=== PATIENT | female | born 1965 | race Caucasian/White ===

== ENCOUNTER 2018-07-09 12:26 | Outpatient (CLI) | payer OTHER ==
--- NOTE | 2018-07-09 15:37 | MRI ---
MRI RIGHT SHOULDER PERFORMED WITHOUT CONTRAST ENHANCEMENT: Date: 07/09/18 HISTORY: Right shoulder pain for months. FINDINGS: There are some moderate AC joint hypertrophic changes present. There is tendinosis of the supraspinatus tendon, particularly the anterior fibers, and there is a par tial undersurface tear involving the articular-sided fibers of the posterior portion of the supraspin atus tendon. This is a focal area where the articular-sided fibers are retracted by approximately 8.0 mm. This area is approximately 6-7 mm in AP dimension, and involves approximately 50% of the thickne ss of the tendon in this region. The infraspinatus appears intact. Subscapularis muscle and tendon are intact and the biceps tendon is normal in position within the bic ipital groove. There are not any definitive labral abnormalities other than some minimal undersurface changes involv ing the superior labrum, which could represent some mild degeneration. No significant rotator cuff muscle atrophy is seen. IMPRESSION: Focal undersurface tear of the posterior half of the supraspinatus tendon as discussed above. POS: LILLI
== END 2018-07-09 12:27 | disposition home or self-care (01) ==
LOC: SCSMRI 12:26
PROVIDERS: ATTEND Orthopaedic Surgery
DX: M75.101 Unspecified rotator cuff tear or rupture of right shoulder, not specified as traumatic (principal)

== ENCOUNTER 2018-10-13 13:19 | Outpatient (CLI) | payer OTHER ==
[2018-10-13 14:53] LABS: #Basophils 0.1 thou/uL (0.0-0.2); #Eosinphils 0.2 thou/uL (0.0-0.7); #Lymphocytes 3.6 thou/uL (1.20-3.40); #Monocytes 1.1 thou/uL (0.11-0.59); #Neutrophils 9.3 thou/uL (1.40-6.50); %Eosinophils 1.5 % (0.0-10.0); %Lymphocytes 24.9 % (21.0-51.0); %Neutrophils 64.6 % (42.0-75.0); Hemoglobin 14.5 g/dL (12.0-16.0); Mean Corpuscular HGB CONC 33.9 g/dL (32.0-36.0); Mean Corpuscular Hemoglobin 30.5 pg (27.0-31.0); Mean Platelet Volume 7.3 fL (7.4-10.4); Platelet Count 430 thou/uL (130-400); Red Blood Cell (RBC) Count 4.75 mill/uL (4.20-5.40); White Blood Cell (WBC) Count 14.3 thou/uL (4.8-10.8)
[2018-10-13 14:55] LABS: Bilirubin Negative (Negative); Blood, Urine Small (Negative); Clarity CLEAR (Clear); Glucose, Urine (Dipstick) Negative (Negative); Leukocyte Negative (Negative); Nitrite Negative (Negative); Protein, Urine (Dipstick) Negative (Neg-Trace); Specific Gravity, Urine 1.013 (1.002-1.036); Urobilinogen 0.2 mg/dL (0.2-1.0)
[2018-10-13 14:57] LABS: Bacteria/HPF None Seen HPF (None Seen); Hyaline Casts/LPF 4-6 HYALINE CAST LPF (0-3 Hyaline); Pathc Cast-AUWi Flag 1.08 (0-2.49); Squamous Epithelial 0-3 HPF (0-3); WBC/HPF 0-3 HPF (0-3)
[2018-10-13 15:09] LABS: Anion Gap 16 mmol/L (10-20); BUN (Urea Nitrogen) 16 mg/dL (9.8-20.1); Calc. Creatinine Clearance 0 mL/min (70-130); Carbon Dioxide 27 mmol/L (22-29); Chloride 98 mmol/L (98-107); Estimated GFR-MDRD 57; Glucose 104 mg/dL (70-105); Potassium 3.9 mmol/L (3.5-5.1); Sodium 137 mmol/L (136-145)
== END 2018-10-13 13:20 | disposition home or self-care (01) ==
LOC: LABBT 13:19
PROVIDERS: ATTEND Orthopaedic Surgery
DX: Z01.818 Encounter for other preprocedural examination (principal); M75.111 Incomplete rotator cuff tear or rupture of right shoulder, not specified as traumatic
CPT/HCPCS: 80048; 81001; 85025; 93005; 93010

== ENCOUNTER 2018-10-15 05:38 | Day surgery (SDC) | payer OTHER ==
[2018-10-13 13:36] VITALS: BMI 43.0
[2018-10-15] MEDS ORDERED: Lidocaine 1% (PF) 30 ML VIAL ONE (06:32)
[2018-10-15] MEDS ORDERED: Fentanyl 100 MCG/2 ML VIAL ONE (06:32)
[2018-10-15] MEDS ORDERED: Midazolam HCl 2 mg/2 ml Vial ONE (06:32)
[2018-10-15] MEDS ORDERED: HYDROcodone/Acetaminophen 10/325 mg Tablet PO PRN ×2 (07:04)
[2018-10-15] MEDS ORDERED: Zolpidem Tartrate 5 MG TAB PO PRN (07:04)
[2018-10-15] MEDS ORDERED: Ketorolac Tromethamine 30 MG/ML VIAL IVP PRN (07:04)
[2018-10-15] MEDS ORDERED: Ropivacaine 0.2% 550 ML 550 ML NERVE BLCK SCH (07:04)
[2018-10-15] MEDS ORDERED: Ondansetron PF 4 MG/2 ML Vial IVP PRN (07:04)
[2018-10-15] MEDS ORDERED: Promethazine HCl 25 MG/ML VIAL IM PRN (07:04)
[2018-10-15] MEDS ORDERED: Fentanyl 100 MCG/2 ML VIAL IV PRN (07:05)
[2018-10-15] MEDS ORDERED: Bupivacaine/Epinephrine 0.25% 30 ML VIAL ONE (07:21)
[2018-10-15] MEDS ORDERED: Ondansetron PF 4 MG/2 ML Vial ONE ×2 (07:37→15:15)
[2018-10-15] MEDS ORDERED: Albuterol Sulfate 1.25 MG/3 ML NEB ONE (08:37)
[2018-10-15] MEDS ORDERED: Sodium Chloride For Inhalation 0.9% 3 ML NEB ONE (08:37)
--- NOTE | 2018-10-15 14:21 | OP ---
DATE OF PROCEDURE: 10/15/2018 PREOPERATIVE DIAGNOSIS: Right partial grade rotator cuff tear, 50%. POSTOPERATIVE DIAGNOSIS: High-grade partial-thickness tear with full-thickness component. PROCEDURE PERFORMED: Right rotator cuff repair arthroscopically. UTILITY BILL COLLECTOR: None. ANESTHESIA: Saeid Thao CRNA The patient received general endotracheal intubation with interscalene block as well as 30 mL of Marcaine 0.25% subacromially. ESTIMATED BLOOD LOSS: 150 mL. TOURNIQUET TIME: None. IMPLANTS: A 5.5 Arthrex corkscrew, 4.75 SwiveLock. ANTIBIOTICS: Ancef 2 g. COMPLICATIONS: None. HISTORY PRESENT ILLNESS: Ms. Hill is a pleasant 53-year-old female, who presented to me with right shoulder pain for over 9 months. The patient has undergone physical therapy, had a subacromial injection, continued to have pain over the last 9 months. I discussed with the patient reconciliation for improvement of outcome. She had MRI evidence of a high-grade supraspinatus tear. I discussed the risks and benefits of the surgery to include pain, scar, bleeding, infection, damage to vital structures, decreased range of motion and strength, nonunion, malunion, failure of repair, fracture, need for further surgeries, and loss of life or limb. The patient understood the risks and benefits and elected to proceed. DESCRIPTION OF PROCEDURE: Time-out was performed designating the patient's right upper extremity as the operative site based on site, consent, and marking. After time-out, the patient's right upper extremity was prepped and draped in sterile fashion and placed in a beach chair position. Posterior working portal was placed. Anterior working portal and deltopectoral interval exposed. I looked in the joint. The patient had some degenerative labrum anteriorly. The biceps was not frayed, had a nice origin of the stump. Slight superior labral fraying, which was debrided. The subscap was in place. I saw the undersurface tear, which I debrided subacromially just off the bone. I then moved after I completed my arthroscopic evaluation, no full-thickness defects of the humerus or the glenoid and moved subacromially, visualized the subacromial. There was a small-threaded hole that was noted to match where the patient had subacromial tear, created a small pin for an anchor and then placed a 5.5 corkscrew into that anchor pole, placed sutures, 4 passes. I used a 4.75 SwiveLock lateral to help to compress it down to the bone. I cleaned that little footprint with latasha to help with space. I cleaned off the bursa and exposed the acromion. I cleaned the soft tissue off the acromion. I then completed my repair. I took final pictures, and closed with 3-0 nylon. This patient will be discharged home; elbow, wrist, and hand motion. Follow up with me in about 2 weeks. Job ID: [id number]
[2018-10-15] MEDS ORDERED: Ropivacaine 0.5% HCl/PF (150 MG/30 ML VIAL) ONE (15:13)
[2018-10-15] MEDS ORDERED: Ropivacaine 0.2% HCl/PF (40 MG/20 ML VIAL) ONE (15:13)
[2018-10-15] MEDS ORDERED: Rocuronium Bromide 10 MG/ML (10ML VIAL) ONE (15:15)
[2018-10-15] MEDS ORDERED: Glycopyrrolate 0.2 MG/ML 5 ML SYRINGE ONE (15:15)
[2018-10-15] MEDS ORDERED: PROPOFOL 200 MG/20 ML VIAL ONE (15:15)
[2018-10-15] MEDS ORDERED: Ketorolac Tromethamine 30 MG/ML VIAL ONE (15:15)
[2018-10-15] MEDS ORDERED: Lidocaine 1% PF 5 ML VIAL ONE (15:15)
== END 2018-10-15 10:15 | disposition home or self-care (01) ==
LOC: SDC 05:38
PROVIDERS: ATTEND Orthopaedic Surgery
PROC: 0LQ14ZZ Repair Right Shoulder Tendon, Percutaneous Endoscopic Approach (ICD-10-PCS; principal; 2018-10-15)
DX: M75.111 Incomplete rotator cuff tear or rupture of right shoulder, not specified as traumatic (principal); I10 Essential (primary) hypertension; F41.9 Anxiety disorder, unspecified; F32.9 Major depressive disorder, single episode, unspecified; F17.200 Nicotine dependence, unspecified, uncomplicated; Z79.899 Other long term (current) drug therapy; Z88.5 Allergy status to narcotic agent; Z88.8 Allergy status to other drugs, medicaments and biological substances
CPT/HCPCS: A4306; C1713; J0690; J1885; J2001; J2250; J2405; J2704; J2795; J3010